=== PATIENT | male | born 1990 | race Caucasian/White ===

== ENCOUNTER 2020-03-29 02:57 | Emergency (ER) | payer BC, SELFPAY ==
[2020-03-29 02:58] VITALS: BP 154/84; PULSE 67; RESP 16; TEMP 36.6; O2SAT 99; BMI 28.5
[2020-03-29 03:04] VITALS: BP 154/84; PULSE 67; RESP 16; TEMP 36.6; O2SAT 99
--- NOTE | 2020-03-29 03:16 | ED.VIS.GEN ---
History of Present Illness Chief Complaint: Abd Pain Informant: Patient Narrative: Stated 3 days ago he ate a turkey salad from fast food and developed some abdominal cramps and diarrhea. Yesterday he had approximately 10 watery diarrhea episodes in the mail the night. Has not had any diarrhea for over 24 hours however. Tonight he developed nausea and hunger pains but he is nervous to eat. He stated he has no pain when he touches his stomach. He actually stated that it feels better to push on his stomach. No fevers or chills. No home treatment. He is scared to eat anything as he does not want to throw up. He ate a smoothie yesterday. However his diet has been decreased since this started. No sick contacts. Past Medical History - Allergies and Home Meds Allergies/Adverse Reactions: Allergies Penicillins Allergy (Verified 03/29/20 03:03) Hives Primary Care Physician: Sen Wang MD [STAFF PHYSICIAN] - Prior records reviewed: Yes Past Medical History: None Surgical History: noncontributory Lives: With Family Smoking Status: Current every day smoker Alcohol: None Drugs: None Review of Systems General: Denies: Chills, Fever, Sweats Eyes: Denies: Visual changes - bilaterally, Diplopia ENT: Denies: Rhinorrhea, Sore throat Cardiovascular: Denies: Chest pain, Palpitations Respiratory: Denies: Dyspnea, Cough, Dyspnea on exertion Gastrointestinal: Reports: Nausea, Diarrhea. Denies: Abdominal pain, Vomiting, Melena, Hematochezia Genitourinary: Denies: Dysuria, Hematuria, Frequency Musculoskeletal: Denies: Back pain, Extremity Pain Skin: Denies: Rash, Wounds Neurological: Denies: Headache, Weakness, Numbness Physical Exam Vital Signs/Narrative: Vital Signs Temp Pulse Resp BP Pulse Ox 03/29/20 03:04 97.9 F 67 16 154/84 H 99 03/29/20 02:58 97.9 F 67 16 154/84 H 99 General: Well nourished, Well developed, No Acute Distress Head: Normocephalic, Atraumatic Eyes: Perrl, EOMI ENT: Moist mucous membranes, No rhinorrhea Neck: Supple, Nontender Cardiovascular: Regular rate, Regular rhythm, No murmurs Respiratory: No distress, CTA bilaterally, Chest nontender Abdomen: Soft, Nontender, Nondistended, Normal bowel sounds Back: Nontender, Normal Inspection Extremities: Nontender, No edema Skin: Normal color, No rash Neurological: Alert, Oriented x3, Cranial nerves II-XII grossly intact, Normal Strength, Normal Sensation Psychological: Normal affect, Normal Mood Diagnostic/Tx/Re-eval - Medical Decision Making IV established and given IV fluids. Given Zofran for nausea. Lab work obtained. Patient felt significantly better after IV fluid bolus and Zofran. He is resting comfortably. He denies abdominal pain or nausea after treatment. He feels relaxed. White blood cell count came back at 15.2. He does have a left shift. Rest of his electrolytes liver function test and lipase are normal for a potassium of 3.0. I do not feel this needs to be replaced at this time. At this time I suspect the patient has his leukocytosis secondary to gastroenteritis. He has had significant diarrhea that has resolved. He stated he has been trying to keep up with fluids but was unsure if he was able to do so. I do not think he needs a CT of his abdomen pelvis or has an acute intra-abdominal emergency that would warrant this. His abdominal exam remains completely normal without pain. He will use Imodium if his diarrhea returns. Given Zofran for home. Will use Pepto-Bismol and follow-up and return if he worsens ED Disposition - Plan for ED Patient: Disposition: Home or Assisted Living Diagnosis: Acute infectious diarrhea Instructions: ED Vomiting and Diarrhea Nonspecific Adult Prescriptions: Ondansetron [Zofran Odt] 8 mg PO Q8H PRN PRN #20 tab PRN Reason: Nausea Transmission Status: Sent to [facility]/pharmacy #[id number] Referrals: Sen Wang MD [STAFF PHYSICIAN] -
[2020-03-29] MEDS: 0.9% Normal Saline 1,000 ML 1000 ML IV (03:23)
[2020-03-29] MEDS: Ondansetron 4 MG/2 ML Vial IV (03:24)
[2020-03-29 03:25] LABS: Absolute Lymphocyte Count 1.63 X10^3/uL (0.83-4.51); Absolute Neutrophil Count 12.5 X10^3/uL (2.0-7.7); Basophil# 0.03 X10^3/uL; Basophil% 0.2 % (0-1); Eosinophil# 0.11 X10^3/uL; Eosinophils% 0.7 % (0-5); Hematocrit 45.3 % (40-54); Hemoglobin 15.7 g/dL (13.0-16.5); Lymphocyte # 1.63 X10^3/ul (4.0); Lymphocyte % 10.7 % (19-41); Mean Corp Hgb Conc 34.7 g/dL (32-36); Mean Corpuscular Hgb 30.3 pg (27.0-32.0); Mean Corpuscular Volume 87.3 fL (80-94); Monocyte# 0.86 X10^3/uL; Monocyte% 5.7 % (0-10); NRBC Flagged by Analyzer 0 % (0-5); Neutrophil # 12.47 X10^3/uL (2.7-7.7); Neutrophil % 82.2 % (47-70); Platelet Count 165 K/mm3 (150-450); RBC Distribution Width CV 11.6 % (11.6-14.6); RBC Distribution Width SD 37.1 fl (35.1-43.9); Red Blood Count 5.19 M/mm3 (4.6-6.2); White Blood Count 15.2 K/mm3 (4.4-11.0)
[2020-03-29 03:37] LABS: ALB/GLOB Ratio 1.2 RATIO (0.9-2.4); AST(SGOT) 14 U/L (15-37); Alanine Aminotransfer ALT/SGPT 21 U/L (16-61); Alkaline Phosphatase 85 U/L (45-117); Anion Gap 7 (5-15); BUN 9 mg/dL (7-18); BUN/Creat Ratio 9.4 RATIO (10-20); Calcium,Total 8.8 mg/dL (8.5-10.1); Chloride 106 mmol/L (98-107); Creatinine, Serum 0.96 mg/dL (0.70-1.30); EST Glomerular Filtration Rate 98 mL/min (>60); Est Glom Filt Rate - Afr Amer 118 mL/min (>60); Estimated Creatinine Clearance 127.16 ml/min; Globulin 3.4 g/dL (2.2-4.2); Glucose 148 mg/dL (74-106); Lipase 65 U/L (73-393); Protein, Total 7.4 g/dL (6.4-8.2); Sodium Level 138 mmol/L (136-145)
[2020-03-29 04:02] VITALS: BP 133/64; PULSE 58; RESP 16; TEMP 37; O2SAT 99
[2020-03-29 04:31] VITALS: BP 133/64; PULSE 56; RESP 16; O2SAT 99
== END 2020-03-29 04:34 | disposition home or self-care (01) ==
PROVIDERS: Emergency Provider Emergency Medicine
DX: A09 Infectious gastroenteritis and colitis, unspecified (principal); F17.200 Nicotine dependence, unspecified, uncomplicated
CPT/HCPCS: 80053; 83690; 85025; 96361; 96374; 99283; J7030; A4216; J2405